=== PATIENT | female | born 1970 | race Caucasian/White ===

== ENCOUNTER 2017-08-14 22:53 | Emergency (ER) | payer SELFPAY ==
[2017-08-14 23:57] LABS: #Basophils 0.1 thou/uL (0.0-0.2); #Eosinphils 0.1 thou/uL (0.0-0.7); #Lymphocytes 1.9 thou/uL (1.20-3.40); #Monocytes 0.5 thou/uL (0.11-0.59); #Neutrophils 4.4 thou/uL (1.40-6.50); %Basophils 1.1 % (0.0-1.0); %Eosinophils 0.8 % (0.0-10.0); %Lymphocytes 27.3 % (21.0-51.0); Hematocrit 42.2 % (36.0-47.0); Mean Platelet Volume 8.6 fL (7.4-10.4); Red Blood Cell (RBC) Count 4.35 mill/uL (4.20-5.40); White Blood Cell (WBC) Count 6.9 thou/uL (4.8-10.8)
--- NOTE | 2017-08-15 | RAD ---
AP VIEW CHEST 08/14/17 HISTORY: Altered mental status. Intoxication. AP view chest is obtained. The lungs are well aerated. No evidence of active intrathoracic disease is seen. No evidence of effusions, pneumonia or pneumothorax seen. IMPRESSION: Unremarkable AP view chest. POS: [facility]
[2017-08-15 00:08] LABS: PTT 25.2 SEC (22.9-36.1); Prothrombin Time 12.5 SEC (12.0-14.7)
[2017-08-15 00:11] LABS: ALT (SGPT) 17 U/L (8-55); AST (SGOT) 17 U/L (5-34); Alkaline Phosphatase 74 U/L (40-150); Anion Gap 14 mmol/L (10-20); BUN (Urea Nitrogen) 11 mg/dL (7.0-18.7); Bilirubin, Total 0.2 mg/dL (0.2-1.2); Calc. Creatinine Clearance 0 mL/min (70-130); Calcium 8.7 mg/dL (7.8-10.44); Carbon Dioxide 20 mmol/L (22-29); Chloride 104 mmol/L (98-107); Estimated GFR-MDRD 71; Magnesium 2.2 mg/dL (1.6-2.6); Protein, Total 7.1 g/dL (6.0-8.3)
[2017-08-15 00:13] LABS: Acetaminophen Less than 6.0 mcg/mL (10.0-30.0); Lipase 33 U/L (8-78); Salicylate Less than 8.0 mg/dL (15.0-30.0)
[2017-08-15 00:16] LABS: Bilirubin Negative (Negative); Blood, Urine Trace (Negative); Glucose, Urine (Dipstick) Negative (Negative); Ketone, Urine Negative (Negative); Nitrite Negative (Negative); Protein, Urine (Dipstick) Negative (Neg-Trace); Urobilinogen 0.2 mg/dL (0.2-1.0)
[2017-08-15 00:26] LABS: Hyaline Casts/LPF NONE SEEN LPF (0-3 Hyaline); RBC/HPF 0-3 HPF (0-3); WBC/HPF None Seen HPF (0-3)
[2017-08-15 00:27] LABS: Bacteria/HPF None Seen HPF (None Seen); Squamous Epithelial 0-3 HPF (0-3)
[2017-08-15 00:40] LABS: Amphetamine Not Detected (NotDetected); Methadone Not Detected (NotDetected); Methamphetamine Not Detected (NotDetected)
[2017-08-15] MEDS ORDERED: Acetaminophen 500 MG TAB ONE (01:06)
[2017-08-15] MEDS ORDERED: PROVENTIL INHALER 6.7 G (200 INHALATIONS) INH PRN (07:15)
--- NOTE | 2017-08-15 08:37 | CT ---
PRELIMINARY REPORT/[facility]/EMERGENCY AFTER HOURS PROCEDURE: EXAM: CT Head Without Intravenous Contrast CLINICAL HISTORY: 46 years old, female; Signs and symptoms; Altered mental status/memory loss; Confusion or disorientat ion; Patient HX: AMS, ETOH TECHNIQUE: Axial computed tomography images of the head/brain without intravenous contrast. COMPARISON: No relevant prior studies available. FINDINGS: Mildly limited due to streak and motion artifact Brain: Mild volume loss No hemorrhage. No significant white matter disease. No edema. Ventricles: Unremarkable. No ventriculomegaly. Bones/joints: Unremarkable. No acute fracture. Soft tissues: Unremarkable. Sinuses: Unremarkable as visualized. No acute sinusitis. Mastoid air cells: Unremarkable as visualized. No mastoid effusion. IMPRESSION: No intracranial hemorrhage.Please see discussion above. Thank you for allowing us to participate in the care of your patient. Dictated and Authenticated by: Cedrick Crum MD 08/15/2017 12:43 AM Central Time ([place] & [place]) FINAL REPORT CT HEAD: Technique: Multiple axial tomograms were obtained through the head without contrast. FINDINGS: There is CSF density in the anterior aspect of the left middle cranial fossa measuring approximately 2 cm AP dimension. This appears to produce some slight mass effect on the temporal context. The findi ngs are most consistent with an arachnoid cyst. This was not described on the preliminary report. No acute intracranial abnormality. No hemorrhage, mass, or infarct seen. IMPRESSION: 1. No acute abnormality. 2. There is evidence of an arachnoid cyst in the left middle cranial fossa. This was not described on the preliminary report. Otherwise, I am in agreement with the preliminary report. QA Code T POS: [facility]
[2017-08-15] MEDS ORDERED: Acetaminophen 325 MG TAB ONE (12:34)
== END 2017-08-15 22:39 ==
LOC: ERS 22:53
DX: F10.10 Alcohol abuse, uncomplicated (principal); F14.10 Cocaine abuse, uncomplicated; R45.851 Suicidal ideations; J44.9 Chronic obstructive pulmonary disease, unspecified; F17.210 Nicotine dependence, cigarettes, uncomplicated
CPT/HCPCS: 36415; 70450; 71010; 80053; 80306; 80307; 81003; 81015; 82550; 83690; 83735; 84443; 85025; 85610; 85730; 93005

== ENCOUNTER 2019-01-04 17:37 | Emergency (ER) | payer SELFPAY ==
[2019-01-04] MEDS ORDERED: Dexamethasone 4 mg/ml Vial ONE (18:49)
--- NOTE | 2019-01-04 19:24 | RAD ---
2 views chest: 01/04/2019 COMPARISON: 07/08/2015 HISTORY: Shortness of breath, dyspnea, COPD, asthma FINDINGS: Lungs appear clear. Heart and mediastinal contours are within normal limits. IMPRESSION: No acute findings.
[2019-01-04 19:30] LABS: #Basophils 0.1 thou/uL (0.0-0.2); #Eosinphils 0.1 thou/uL (0.0-0.7); #Lymphocytes 1.6 thou/uL (1.20-3.40); #Monocytes 0.4 thou/uL (0.11-0.59); #Neutrophils 2.6 thou/uL (1.40-6.50); %Basophils 1.2 % (0.0-1.0); %Eosinophils 1.7 % (0.0-10.0); %Monocytes 8.2 % (0.0-10.0); Hemoglobin 13.1 g/dL (12.0-16.0); Mean Corpuscular HGB CONC 33.1 g/dL (32.0-36.0); Mean Corpuscular Hemoglobin 28.8 pg (27.0-31.0); Mean Platelet Volume 10.4 fL (7.4-10.4); Platelet Count 177 thou/uL (130-400); RBC Distribution Width 15.4 % (11.5-14.5); Red Blood Cell (RBC) Count 4.56 mill/uL (4.20-5.40); White Blood Cell (WBC) Count 4.7 thou/uL (4.8-10.8)
[2019-01-04 19:47] LABS: ALT (SGPT) 25 U/L (8-55); AST (SGOT) 21 U/L (5-34); Albumin 4.2 g/dL (3.5-5.0); Alkaline Phosphatase 94 U/L (40-150); Anion Gap 13 mmol/L (10-20); BUN (Urea Nitrogen) 15 mg/dL (7.0-18.7); Bilirubin, Total 0.3 mg/dL (0.2-1.2); Calc. Creatinine Clearance 0 mL/min (70-130); Carbon Dioxide 25 mmol/L (22-29); Chloride 106 mmol/L (98-107); Estimated GFR-MDRD 48; Globulin 2.9 g/dL (2.4-3.5); Glucose 98 mg/dL (70-105); Potassium 4.1 mmol/L (3.5-5.1); Protein, Total 7.1 g/dL (6.0-8.3); Sodium 140 mmol/L (136-145)
== END 2019-01-04 20:40 | disposition home or self-care (01) ==
LOC: ERS 17:37
DX: J44.9 Chronic obstructive pulmonary disease, unspecified (principal); M77.9 Enthesopathy, unspecified; F17.210 Nicotine dependence, cigarettes, uncomplicated; Z79.51 Long term (current) use of inhaled steroids
CPT/HCPCS: 71046; 80053; 83880; 85025; 93005; 94640; J1100; J7620

== ENCOUNTER 2019-04-19 01:36 | Emergency (ER) | payer SELFPAY ==
[2019-04-19] MEDS ORDERED: Acetaminophen 500 MG TAB ONE (02:04)
[2019-04-19] MEDS ORDERED: Metoclopramide HCl 10 MG/2 ML VIAL ONE (02:04)
[2019-04-19 02:13] LABS: #Lymphocytes 0.9 thou/uL (1.20-3.40); #Monocytes 0.3 thou/uL (0.11-0.59); #Neutrophils 3.1 thou/uL (1.40-6.50); %Basophils 0.1 % (0.0-1.0); %Eosinophils 0.9 % (0.0-10.0); %Lymphocytes 20.7 % (21.0-51.0); %Monocytes 6.9 % (0.0-10.0); %Neutrophils 71.5 % (42.0-75.0); Hemoglobin 13.5 g/dL (12.0-16.0); Mean Corpuscular HGB CONC 33.9 g/dL (32.0-36.0); Mean Corpuscular Hemoglobin 30.2 pg (27.0-31.0); Mean Platelet Volume 10.5 fL (7.4-10.4); Platelet Count 133 thou/uL (130-400); Red Blood Cell (RBC) Count 4.46 mill/uL (4.20-5.40); White Blood Cell (WBC) Count 4.4 thou/uL (4.8-10.8)
[2019-04-19 02:19] LABS: BHCG - Serum Negative (NEGATIVE); PTT 25.7 SEC (22.9-36.1); Pregs Control Background? CLEAR/WHITE (CLR/WHITE); Pregs Control Bar Appear? YES (CONTROL BAR); Prothrombin Time 12.7 SEC (12.0-14.7)
[2019-04-19 02:33] LABS: ALT (SGPT) 27 U/L (8-55); AST (SGOT) 23 U/L (5-34); Albumin 4.2 g/dL (3.5-5.0); Alkaline Phosphatase 99 U/L (40-150); Anion Gap 16 mmol/L (10-20); BUN (Urea Nitrogen) 11 mg/dL (7.0-18.7); Bilirubin, Total 0.3 mg/dL (0.2-1.2); CK (CPK) 90 U/L (29-168); Calc. Creatinine Clearance 0 mL/min (70-130); Calcium 9.7 mg/dL (7.8-10.44); Carbon Dioxide 21 mmol/L (22-29); Chloride 108 mmol/L (98-107); Estimated GFR-MDRD 65; Globulin 2.5 g/dL (2.4-3.5); Glucose 117 mg/dL (70-105); Potassium 4.3 mmol/L (3.5-5.1); Protein, Total 6.7 g/dL (6.0-8.3); Sodium 141 mmol/L (136-145)
--- NOTE | 2019-04-19 08:05 | CT ---
PRELIMINARY REPORT/[facility]/EMERGENCY AFTER HOURS PROCEDURE Addendum created by Serge Garcia MD on 04/19/2019 2:45 AM Central Time ([place] & [place]) THIS REPORT CONTAINS FINDINGS THAT MAY BE CRITICAL TO PATIENT CARE. The findings were verbally commun icated via telephone conference with ROSANNE CARBAJAL at 2:18 AM CDT on 04/19/2019. The findings were acknowledged and understood. Initial Report created on 04/19/2019 2:16 AM Central Time ([place] & [place]) EXAM: CT Head Without Contrast EXAM DATE/TIME: 04/19/2019 2:08 AM CLINICAL HISTORY: 48 years old, female; Weakness, extremity; Patient HX: Previous on pacs. . . Er 14. . . Headache with left arm numbness TECHNIQUE: Imaging protocol: Computed tomography images of the head without contrast. Other technique: STROKE PROTOCOL was implemented. COMPARISON: No relevant prior studies available. FINDINGS: Brain: CSF attenuation collections within the left intervertebral fossa, possibly arachnoid cyst. No mass, hemorrhage, or acute infarction. Ventricles: Normal. Bones/joints: Normal. Sinuses: Normal as visualized. Mastoid air cells: Normal as visualized. Soft tissues: Unremarkable. IMPRESSION: No acute intracranial abnormality. ASSESSMENT: ASPECTS ([place] Stroke Program Early CT Score) is 10. Thank you for allowing us to participate in the care of your patient. Dictated and Authenticated by: Serge Garcia MD 04/19/2019 2:16 AM Central Time ([place] & [place]) FINAL REPORT CT BRAIN WITHOUT CONTRAST: I agree with the preliminary report given by Dr. Serge Garcia of [facility]. CODE QA POS: [facility]
== END 2019-04-19 03:46 | disposition home or self-care (01) ==
LOC: ERS 01:36
DX: G43.809 Other migraine, not intractable, without status migrainosus (principal); J44.9 Chronic obstructive pulmonary disease, unspecified; F17.210 Nicotine dependence, cigarettes, uncomplicated; Z79.51 Long term (current) use of inhaled steroids
CPT/HCPCS: 36415; 36416; 70450; 80053; 82550; 84484; 84703; 85025; 85610; 85730; 93005; 96365; J2765

== ENCOUNTER 2019-04-29 08:47 | Emergency (ER) | payer SELFPAY ==
[2019-04-29] MEDS ORDERED: predniSONE 20 MG TAB ONE (09:40)
[2019-04-29 09:57] LABS: #Lymphocytes 1.8 thou/uL (1.20-3.40); #Monocytes 0.7 thou/uL (0.11-0.59); #Neutrophils 8.2 thou/uL (1.40-6.50); %Basophils 0.2 % (0.0-1.0); %Eosinophils 0.1 % (0.0-10.0); %Lymphocytes 17.1 % (21.0-51.0); %Monocytes 6.7 % (0.0-10.0); %Neutrophils 75.9 % (42.0-75.0); Hemoglobin 12.7 g/dL (12.0-16.0); Mean Corpuscular HGB CONC 33.6 g/dL (32.0-36.0); Mean Corpuscular Hemoglobin 30.2 pg (27.0-31.0); Mean Corpuscular Volume 89.8 fL (78.0-98.0); Mean Platelet Volume 10.5 fL (7.4-10.4); Platelet Count 151 thou/uL (130-400); RBC Distribution Width 15.8 % (11.5-14.5); White Blood Cell (WBC) Count 10.8 thou/uL (4.8-10.8)
[2019-04-29 10:19] LABS: ALT (SGPT) 34 U/L (8-55); AST (SGOT) 20 U/L (5-34); Albumin 4.1 g/dL (3.5-5.0); Alkaline Phosphatase 90 U/L (40-150); Anion Gap 11 mmol/L (10-20); BUN (Urea Nitrogen) 17 mg/dL (7.0-18.7); Bilirubin, Total 0.2 mg/dL (0.2-1.2); Calc. Creatinine Clearance 0 mL/min (70-130); Calcium 9.2 mg/dL (7.8-10.44); Carbon Dioxide 21 mmol/L (22-29); Chloride 110 mmol/L (98-107); Estimated GFR-MDRD 75; Globulin 2.4 g/dL (2.4-3.5); Glucose 92 mg/dL (70-105); Potassium 4.3 mmol/L (3.5-5.1); Protein, Total 6.5 g/dL (6.0-8.3); Sodium 138 mmol/L (136-145)
--- NOTE | 2019-04-29 10:43 | RAD ---
EXAM: Chest one view: HISTORY: Dyspnea COMPARISON: 04/27/2019 FINDINGS: Heart size: Within normal limits. Lungs: Clear of acute process. No evidence for pneumonia, pleural effusion, acute edema, or pneumothorax, or other significant acute process. IMPRESSION: No significant acute intrathoracic disease. Stable chest.
== END 2019-04-29 10:44 | disposition home or self-care (01) ==
LOC: ERS 08:47
DX: J44.1 Chronic obstructive pulmonary disease with (acute) exacerbation (principal); F31.9 Bipolar disorder, unspecified; F43.10 Post-traumatic stress disorder, unspecified; F17.210 Nicotine dependence, cigarettes, uncomplicated; Z79.51 Long term (current) use of inhaled steroids
CPT/HCPCS: 36415; 71045; 80053; 84484; 85025; 93005; 94640; J7512; J7620

== ENCOUNTER 2019-06-22 22:20 | Emergency (ER) | payer SELFPAY ==
[2019-06-22 22:41] LABS: Bilirubin Negative (Negative); Blood, Urine Negative (Negative); Clarity Clear (Clear); Glucose, Urine (Dipstick) Normal (Negative); Leukocyte Negative Leu/uL (Negative); Nitrite Negative (Negative); Protein, Urine (Dipstick) Negative (Neg-Trace); Urobilinogen Normal mg/dL (Less than 2)
[2019-06-22 22:50] LABS: Amphetamine Not Detected (NotDetected); Barbiturates Screen Not Detected (NotDetected); Benzodiazepine Screen Not Detected (NotDetected); Cocaine Metabolite Screen Not Detected (NotDetected); Medtox Control Line Valid? VALID (VALID); Medtox Reader # READER 1; Methadone Not Detected (NotDetected); Methamphetamine Not Detected (NotDetected); Opiate Screen Not Detected (NotDetected); Oxycodone Screen Not Detected (NotDetected); Phencyclidine (PCP) Not Detected (NotDetected); THC/Cannabinoid Screen Not Detected (NotDetected); Tricyclic Screen Not Detected (NotDetected)
[2019-06-22 22:51] LABS: #Lymphocytes 1.9 thou/uL (1.20-3.40); #Monocytes 0.5 thou/uL (0.11-0.59); #Neutrophils 3.9 thou/uL (1.40-6.50); %Basophils 0.6 % (0.0-1.0); %Eosinophils 0.6 % (0.0-10.0); %Lymphocytes 29.8 % (21.0-51.0); %Monocytes 7.2 % (0.0-10.0); %Neutrophils 61.9 % (42.0-75.0); Hemoglobin 13.9 g/dL (12.0-16.0); Mean Corpuscular HGB CONC 34.3 g/dL (32.0-36.0); Mean Corpuscular Hemoglobin 30.9 pg (27.0-31.0); Mean Corpuscular Volume 90.1 fL (78.0-98.0); Mean Platelet Volume 9.9 fL (7.4-10.4); Platelet Count 175 thou/uL (130-400); RBC Distribution Width 14.7 % (11.5-14.5); Red Blood Cell (RBC) Count 4.49 mill/uL (4.20-5.40); White Blood Cell (WBC) Count 6.3 thou/uL (4.8-10.8)
[2019-06-22 23:16] LABS: ALT (SGPT) 41 U/L (8-55); AST (SGOT) 32 U/L (5-34); Albumin 4.5 g/dL (3.5-5.0); Alkaline Phosphatase 83 U/L (40-110); Anion Gap 15 mmol/L (10-20); BUN (Urea Nitrogen) 8 mg/dL (7.0-18.7); Bilirubin, Total 0.4 mg/dL (0.2-1.2); CK (CPK) 159 U/L (29-168); Calc. Creatinine Clearance 0 mL/min (70-130); Calcium 9.5 mg/dL (7.8-10.44); Carbon Dioxide 19 mmol/L (22-29); Chloride 103 mmol/L (98-107); Estimated GFR-MDRD 69; Globulin 2.9 g/dL (2.4-3.5); Glucose 85 mg/dL (70-105); Protein, Total 7.4 g/dL (6.0-8.3); Sodium 133 mmol/L (136-145)
[2019-06-22 23:17] LABS: Acetaminophen Less than 6.0 mcg/mL (10.0-30.0); Alcohol 89 mg/dL (Less than 10); Salicylate Less than 8.0 mg/dL (15.0-30.0)
[2019-06-24] MEDS ORDERED: Mometasone/Formoterol 120 PUFF INHALER INH SCH (06:30)
[2019-06-24] MEDS ORDERED: Montelukast Sodium 10 mg Tablet PO SCH (09:00)
[2019-06-24] MEDS ORDERED: Naproxen 500 MG TAB PO SCH (09:00)
== END 2019-06-24 19:10 | disposition home or self-care (01) ==
LOC: ERS 22:20
DX: F32.9 Major depressive disorder, single episode, unspecified (principal); R45.851 Suicidal ideations; J44.9 Chronic obstructive pulmonary disease, unspecified; F17.210 Nicotine dependence, cigarettes, uncomplicated; F43.10 Post-traumatic stress disorder, unspecified; Z79.899 Other long term (current) drug therapy; Z77.22 Contact with and (suspected) exposure to environmental tobacco smoke (acute) (chronic)
CPT/HCPCS: 36415; 80053; 80306; 80307; 81003; 82550; 84443; 85025; 99406

== ENCOUNTER 2019-10-17 11:14 | Inpatient (IN) | payer SELFPAY ==
--- NOTE | 2019-10-17 11:37 | RAD ---
XR Chest Pa Lat STANDARD HISTORY: Cough, shortness of breath COMPARISON: 04/29/2019 and 01/04/2019 FINDINGS: The heart size is normal. The lungs are well expanded without focal areas of consolidation, pneumothorax or pleural effusions. There are mild perihilar infiltrates.
[2019-10-17 11:53] LABS: #Eosinphils 0.1 thou/uL (0.0-0.7); #Lymphocytes 0.8 thou/uL (1.20-3.40); #Monocytes 0.5 thou/uL (0.11-0.59); #Neutrophils 4.9 thou/uL (1.40-6.50); %Basophils 0.3 % (0.0-1.0); %Eosinophils 1.4 % (0.0-10.0); %Lymphocytes 12.6 % (21.0-51.0); %Monocytes 8.1 % (0.0-10.0); %Neutrophils 77.6 % (42.0-75.0); Mean Corpuscular HGB CONC 33.5 g/dL (32.0-36.0); Mean Corpuscular Volume 95.5 fL (78.0-98.0); Mean Platelet Volume 9.3 fL (7.4-10.4); Platelet Count 154 thou/uL (130-400); RBC Distribution Width 16.5 % (11.5-14.5); Red Blood Cell (RBC) Count 4.39 mill/uL (4.20-5.40); White Blood Cell (WBC) Count 6.3 thou/uL (4.8-10.8)
[2019-10-17 12:18] LABS: ALT (SGPT) 26 U/L (8-55); AST (SGOT) 24 U/L (5-34); Albumin 3.9 g/dL (3.5-5.0); Alkaline Phosphatase 89 U/L (40-110); Anion Gap 14 mmol/L (10-20); BUN (Urea Nitrogen) 8 mg/dL (7.0-18.7); Bilirubin, Total 0.3 mg/dL (0.2-1.2); Calc. Creatinine Clearance 0 mL/min (70-130); Calcium 9.1 mg/dL (7.8-10.44); Carbon Dioxide 21 mmol/L (22-29); Chloride 105 mmol/L (98-107); Estimated GFR-MDRD 67; Glucose 76 mg/dL (70-105); Potassium 5.1 mmol/L (3.5-5.1); Protein, Total 6.9 g/dL (6.0-8.3); Sodium 135 mmol/L (136-145)
[2019-10-17] MEDS ORDERED: methylPREDNISolone Sod Succ/PF 125 MG/2 ML VIAL ONE (17:15)
[2019-10-17] MEDS ORDERED: Levofloxacin 500 mg/D5W 100 ml Premix Bag ONE (17:15)
[2019-10-17] MEDS ORDERED: Ibuprofen 800 MG TAB ONE (17:24)
[2019-10-17] MEDS ORDERED: Senokot S 8.6-50 MG TAB PO PRN (19:41)
[2019-10-17 20:18] LABS: Troponin I Less than 0.010 ng/mL (< 0.028)
[2019-10-17] MEDS: Nicotine 14 MG PATCH TD SCH (20:43)
[2019-10-17 20:53] VITALS: BMI 40.1
[2019-10-17] MEDS: Famotidine/PF 20 mg/2ml Vial SLOW IVP SCH (21:30)
[2019-10-18 00:25] LABS: Troponin I Less than 0.010 ng/mL (< 0.028)
--- NOTE | 2019-10-18 01:22 | HP ---
CHIEF COMPLAINT: Shortness of breath. HISTORY OF PRESENT ILLNESS: The patient is a very nice 48-year-old female, who presents to the hospital with complaints of shortness of breath. The patient stated that yesterday she started having cough followed with some lower chest upper abdominal pain radiating to her back. She described the pain as a sharp pain. The patient states that she has been using her neb treatments at home without any relief. So she came into the hospital for further evaluation. She denies any fevers or chills. She was a little nauseated. She continues to smoke a pack and a half a day. PAST MEDICAL HISTORY: She has a history of asthma that she was diagnosed at the age of 15. She has a history of hypertension. It says she has a history of COPD, but she has never been officially tested for this. PAST SURGICAL HISTORY: She has had fracture of the right ankle. She has had right eye surgery. She has had tubal ligation. 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 SOCIAL HISTORY: She currently smokes tobacco a pack a day. She denies any alcohol use or recreational drug use. She lives with her . CODE STATUS: She is a full code. ALLERGIES: TO TRAMADOL. MEDICATIONS: She is on: 1. Symbicort 80 mcg/4.5 mcg two puffs once a day. 2. She is on albuterol as needed. 3. She is on hydroxyzine t.i.d. 4. She is on sertraline 50 mg daily. 5. She is on Divalproex one tab twice a day. REVIEW OF SYSTEMS: All negative except for the ones mentioned above in the HPI. PHYSICAL EXAMINATION: VITAL SIGNS: 95% on room air, 98.7 temperature, respirations of 18, pulse of 99, and blood pressure 142/87. GENERAL: She is awake, alert, and oriented x3. Does not appear in any distress. She does at times get short of breath after talking for a while. CV: S1 and S2 present. No murmurs, rubs, or gallops. LUNGS: She has mild expiratory wheezing to her left lower lung compared to her right. ABDOMEN: Soft. Mild pain upon palpation to the epigastric area. Otherwise, benign abdomen. EXTREMITIES: She has some trace lower extremity pitting edema. Pedal pulses are present x2. NEUROVASCULAR: There are no focal deficits noted. SKIN: No cuts, lesions, or bruises noted. LABORATORY DATA: Laboratory results are as of the following. WBC of 6.3, hemoglobin of 14.0, hematocrit of 41.9, platelets of 154. Chemistry; sodium of 135, potassium of 5.1, BUN of 8, creatinine of 0.91. She did have a flu swab, which was negative. She also had a chest x-ray, which stated possible perihilar infiltrates. ASSESSMENT AND PLAN: The patient is a very pleasant 48-year-old female, who presents to the hospital with complaints of shortness of breath. 1. Shortness of breath, possibly asthma exacerbation versus asthma and chronic obstructive pulmonary disease exacerbation. As I mentioned, she has not really officially been tested for chronic obstructive pulmonary disease; however, given her history of smoking, most likely she does have. She does not have a continuous wave operator as an outpatient. We will start her on some Solu-Medrol, DuoNebs, and also start her on antibiotics. I will check a procalcitonin level. I will also get a BNP and also an echocardiogram. She has significant risk factors for possible other reasons for her shortness of breath. She did not have significant wheezing on exam; however, she I was told and the patient confirms that she was very short of breath upon arrival. 2. Possible asthma exacerbation. Again as I mentioned earlier, we will start her on some broad-spectrum antibiotics, neb treatments and also DuoNeb. 3. Deep venous thrombosis prophylaxis. We will put the patient on SCDs and subcu Lovenox. Also, I will go ahead and get an echocardiogram on her given the fact that she does not have any heart disease or any history of heart disease; however, she was significantly short of breath, and we will also get a BNP for her. Job ID: [id number]
[2019-10-18 05:28] LABS: #Lymphocytes 0.4 thou/uL (1.20-3.40); #Monocytes 0.1 thou/uL (0.11-0.59); #Neutrophils 3.7 thou/uL (1.40-6.50); %Eosinophils 0.3 % (0.0-10.0); %Lymphocytes 9.7 % (21.0-51.0); %Monocytes 3.4 % (0.0-10.0); %Neutrophils 86.7 % (42.0-75.0); Hemoglobin 12.2 g/dL (12.0-16.0); Mean Corpuscular HGB CONC 32.9 g/dL (32.0-36.0); Mean Corpuscular Hemoglobin 30.9 pg (27.0-31.0); Mean Corpuscular Volume 93.9 fL (78.0-98.0); Mean Platelet Volume 9.7 fL (7.4-10.4); Platelet Count 145 thou/uL (130-400); RBC Distribution Width 16.4 % (11.5-14.5); Red Blood Cell (RBC) Count 3.95 mill/uL (4.20-5.40); White Blood Cell (WBC) Count 4.2 thou/uL (4.8-10.8)
[2019-10-18 05:47] LABS: Anion Gap 16 mmol/L (10-20); BUN (Urea Nitrogen) 11 mg/dL (7.0-18.7); Calc. Creatinine Clearance 128 mL/min (70-130); Calcium 8.6 mg/dL (7.8-10.44); Carbon Dioxide 20 mmol/L (22-29); Chloride 107 mmol/L (98-107); Estimated GFR-MDRD 68; Glucose 158 mg/dL (70-105); Potassium 4.7 mmol/L (3.5-5.1); Sodium 138 mmol/L (136-145)
[2019-10-18 05:57] LABS: Troponin I Less than 0.010 ng/mL (< 0.028)
[2019-10-18] MEDS: Enoxaparin Sodium 40 MG/0.4 ML SYRINGE SC SCH (09:49)
[2019-10-18] MEDS: Famotidine/PF 20 mg/2ml Vial SLOW IVP SCH ×2 (09:49→20:46)
[2019-10-18] MEDS ORDERED: Furosemide 40 MG/4 ML VIAL SLOW IVP SCH (14:30)
--- NOTE | 2019-10-18 14:31 | PDOC.HOSPP ---
- Subjective Encounter Date: 10/18/19 Encounter Time: 11:55 Subjective: pt up in bed feels a bit better compared to yesterday. - Objective Vital Signs & Weight: Vital Signs (12 hours) Temp Pulse Resp BP BP Pulse Ox 10/18/19 11:42 97.9 F 102 H 18 118/73 95 10/18/19 10:32 92 16 92 L 10/18/19 08:00 96 10/18/19 07:54 98.1 F 114 H 20 139/80 96 10/18/19 07:03 95 16 90 L 10/18/19 05:26 98.8 F 87 20 121/76 93 L Weight Weight 227 lb I&O: 10/17/19 10/18/19 10/19/19 06:59 06:59 06:59 Intake Total 800 Balance 800 Result Diagrams: 10/18/19 05:05 10/18/19 05:05 Hospitalist ROS - Review of Systems Respiratory: reports: shortness of breath Cardiovascular: denies: chest pain, palpitations, orthopnea, paroxysmal noc. dyspnea, edema, light headedness, other Gastrointestinal: denies: nausea, vomiting, abdominal pain, diarrhea, constipation, melena, hematochezia, other Genitourinary: denies: dysuria, frequency, incontinence, hematuria, retention, other - Medication Medications: Active Medications Generic Name Dose Route Start Last Admin Trade Name Freq PRN Reason Stop Dose Admin Albuterol/Ipratropium 3 ml 10/17/19 22:30 10/18/19 13:56 Duoneb NEB Not Given T4OK-OR SOLANGE Enoxaparin Sodium 40 mg 10/18/19 09:00 10/18/19 09:49 Lovenox SC 40 mg 0900 SOLANGE Administration Famotidine 20 mg 10/17/19 21:00 10/18/19 09:49 Pepcid SLOW IVP 20 mg Q12HR SOLANGE Administration Nicotine 14 mg 10/17/19 20:00 10/17/19 20:43 Nicoderm Patch TD 14 mg Q24HR SOLANGE Administration Sodium Chloride 10 ml 10/18/19 09:00 10/18/19 09:50 Flush - Normal Saline IVF 10 ml Q12HR SOLANGE Administration - Exam Neck: negative: supple, symmetric, no JVD, no thyromegaly, no lymphadenopathy, no carotid bruit, JVD Heart: negative: RRR, no murmur, no gallops, no rubs, normal peripheral pulses, irregular, diminshed peripheral pulses, murmur present, II/IV, III/IV Respiratory: wheezes Gastrointestinal: negative: soft, non-tender, non-distended, normal bowel sounds , no palpable masses, no hepatomegaly, no splenomegaly, no bruit, no guarding, no rigidity, tender to palpation, distended, diminished bowl sounds, voluntary guarding Extremities: negative: no cyanosis, no clubbing, no edema, 1+ LE edema, 2+ LE edema, clubbing Hosp A/P (1) SOB (shortness of breath) Code(s): R06.02 - SHORTNESS OF BREATH Status: Acute (2) Obesity Code(s): E66.9 - OBESITY, UNSPECIFIED Status: Acute (3) Asthma exacerbation Code(s): J45.901 - UNSPECIFIED ASTHMA WITH (ACUTE) EXACERBATION Status: Acute - Plan pt states she feels much better, echo pending. bnp normal. will give one dose of iv lasix for now. possible discharge in am if she is able to be weaned off oxygen.
[2019-10-18] MEDS: Acetaminophen 325 MG TAB PO PRN (15:54)
[2019-10-18] MEDS: hydrOXYzine 10 MG TAB PO SCH ×2 (15:54→20:37)
[2019-10-18] MEDS: Divalproex Sodium DR 500 MG TAB PO SCH (20:37)
[2019-10-18] MEDS: hydrOXYzine 25 MG TAB PO SCH (20:37)
[2019-10-18] MEDS: Nicotine 14 MG PATCH TD SCH (20:47)
[2019-10-19] MEDS: Famotidine/PF 20 mg/2ml Vial SLOW IVP SCH (08:21)
[2019-10-19] MEDS: Enoxaparin Sodium 40 MG/0.4 ML SYRINGE SC SCH (08:21)
[2019-10-19] MEDS: Divalproex Sodium DR 500 MG TAB PO SCH ×2 (08:22→20:46)
[2019-10-19] MEDS: hydrOXYzine 10 MG TAB PO SCH ×3 (08:22→20:54)
[2019-10-19] MEDS: methylPREDNISolone Sod Succ 40 MG VIAL IVP SCH (08:22)
[2019-10-19] MEDS ORDERED: Furosemide 40 MG/4 ML VIAL SLOW IVP SCH (09:15)
--- NOTE | 2019-10-19 14:01 | PDOC.HOSPP ---
- Subjective Encounter Date: 10/19/19 Encounter Time: 10:55 Subjective: pt up in bed feels better today - Objective Vital Signs & Weight: Vital Signs (12 hours) Temp Pulse Resp BP Pulse Ox 10/19/19 13:53 89 16 94 L 10/19/19 10:39 85 16 95 10/19/19 08:00 95 10/19/19 07:28 98.2 F 82 18 101/52 L 95 10/19/19 07:07 88 16 94 L 10/19/19 02:39 84 16 97 Weight Weight 227 lb I&O: 10/18/19 10/19/19 10/20/19 06:59 06:59 06:59 Intake Total 1280 Balance 1280 Result Diagrams: 10/18/19 05:05 10/18/19 05:05 Hospitalist ROS - Review of Systems Cardiovascular: denies: chest pain, palpitations, orthopnea, paroxysmal noc. dyspnea, edema, light headedness, other Gastrointestinal: denies: nausea, vomiting, abdominal pain, diarrhea, constipation, melena, hematochezia, other Genitourinary: denies: dysuria, frequency, incontinence, hematuria, retention, other - Medication Medications: Active Medications Generic Name Dose Route Start Last Admin Trade Name Freq PRN Reason Stop Dose Admin Acetaminophen 650 mg 10/17/19 19:41 10/18/19 15:54 Tylenol PO 650 mg Q4H PRN Administration Headache/Fever/Mild Pain (1-3) Albuterol/Ipratropium 3 ml 10/17/19 22:30 10/19/19 13:53 Duoneb NEB 3 ml [id number] SOLANGE Administration Divalproex Sodium 500 mg 10/18/19 21:00 10/19/19 08:22 Depakote PO 500 mg BID SOLANGE Administration Enoxaparin Sodium 40 mg 10/18/19 09:00 10/19/19 08:21 Lovenox SC 40 mg 0900 SOLANGE Administration Famotidine 20 mg 10/17/19 21:00 10/19/19 08:21 Pepcid SLOW IVP 20 mg Q12HR SOLANGE Administration Hydroxyzine HCl 10 mg 10/18/19 15:00 10/19/19 08:22 Atarax PO 10 mg TID SOLANGE Administration Hydroxyzine HCl 100 mg 10/18/19 21:00 10/18/19 20:37 Atarax PO 100 mg HS SOLANGE Administration Levofloxacin 500 mg/ Device 100 mls @ 100 mls/hr 10/18/19 18:00 10/18/19 18: 13 IVPB 100 mls Q24HR SOLANGE Administration Methylprednisolone Sodium Succinate 40 mg 10/19/19 09:00 10/19/19 08:22 Solu-Medrol IVP 40 mg DAILY [facility] Administration Nicotine 14 mg 10/17/19 20:00 10/18/19 20:47 Nicoderm Patch TD Not Given Q24HR SOLANGE Sertraline HCl 50 mg 10/19/19 09:00 10/19/19 08:21 Zoloft PO 50 mg DAILY SOLANGE Administration Sodium Chloride 10 ml 10/18/19 09:00 10/19/19 08:23 Flush - Normal Saline IVF 10 ml Q12HR SOLANGE Administration - Exam ENT: negative: normocephalic atraumatic, no oropharyngeal lesions, moist mucosa , dry oral mucosa Neck: negative: supple, symmetric, no JVD, no thyromegaly, no lymphadenopathy, no carotid bruit, JVD Heart: negative: RRR, no murmur, no gallops, no rubs, normal peripheral pulses, irregular, diminshed peripheral pulses, murmur present, II/IV, III/IV Respiratory: wheezes Hosp A/P (1) SOB (shortness of breath) Code(s): R06.02 - SHORTNESS OF BREATH Status: Acute (2) Obesity Code(s): E66.9 - OBESITY, UNSPECIFIED Status: Acute (3) Asthma exacerbation Code(s): J45.901 - UNSPECIFIED ASTHMA WITH (ACUTE) EXACERBATION Status: Acute - Plan pt states she feels much better, echo pending. bnp normal. will give one dose of iv lasix for now. possible discharge in am if she is able to be weaned off oxygen. 10/19 will give her one more dose of lasix and possible discharge in am. she is doing well. she has an appointment with her primary carola.
[2019-10-19] MEDS ORDERED: Furosemide 20 MG/2 ML VIAL SLOW IVP SCH (14:15)
[2019-10-19] MEDS: Acetaminophen 325 MG TAB PO PRN (20:46)
[2019-10-19] MEDS: hydrOXYzine 25 MG TAB PO SCH (20:47)
[2019-10-19] MEDS: Famotidine 20 MG TAB PO SCH (20:47)
[2019-10-19] MEDS: Nicotine 14 MG PATCH TD SCH (20:59)
[2019-10-20 07:47] VITALS: BP 137/79; TEMP 97.7
[2019-10-20] MEDS: hydrOXYzine 10 MG TAB PO SCH (08:49)
[2019-10-20] MEDS: Famotidine 20 MG TAB PO SCH (08:49)
[2019-10-20] MEDS: Divalproex Sodium DR 500 MG TAB PO SCH (08:50)
[2019-10-20] MEDS: Enoxaparin Sodium 40 MG/0.4 ML SYRINGE SC SCH (08:52)
[2019-10-20] MEDS: methylPREDNISolone Sod Succ 40 MG VIAL IVP SCH (08:53)
[2019-10-20] MEDS ORDERED: predniSONE 20 MG TAB PO SCH (09:00)
--- NOTE | 2019-10-21 22:27 | PQF ---
WangAmy LOUISA CONSTANTINO [id number] CLINICAL DOCUMENTATION CLARIFICATION FORM: POST DISCHARGE Addendum to original discharge summary date: ____ Late entry note date: __ DATE:10/21/2019 ATTN:LOUISA CONSTANTINO Please exercise your independent, professional judgment in responding to the clarification form. Clinical indicators are provided on the bottom of this form for your review Please check appropriate box(s): kindly clarify the shortness of breath etiology [ ] Shortness of breath due to Asthma exacerbation [ ] Shortness of breath due to COPD exacerbation [ ] Other diagnosis [ ] Unable to determine In addition, please specify: Present on Admission (POA): [ ] Yes [ ] No [ ] Unable to determine For continuity of documentation, please document condition throughout progress notes and discharge summary. Thank You. CLINICAL INDICATORS - SIGNS / SYMPTOMS / LABS Shortness of breath possibly asthma exacerbation versus asthma and COPD exacerbation-Documented in H&P on 10/17 by Louisa Constantino MD Pt states she feels much better , ECHO pending . BNP normal -Documented in PN on 10/19 by Louisa Constantino MD Asthma exacerbation-Documented in PN on 10/19 by Louisa Constantino MD RISK FACTORS Shortness of breath possibly asthma exacerbation versus asthma and COPD exacerbation-Documented in H&P on 10/17 by Louisa Constantino MD She currently smokes tobacco a pack a day-Documented in H&P on 10/17 by Louisa Constantino MD TREATMENTS: We will start her on some solu-medrol, Duonebs, and also start her antibiotics. I will check a procalcitonin level. 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 All Rights Reserved [email or web address]
--- NOTE | 2019-10-23 16:49 | EKG ---
Test Reason : CHEST PAIN Blood Pressure : / mmHG Vent. Rate : 106 BPM Atrial Rate : 106 BPM P-R Int : 140 ms QRS Dur : 076 ms QT Int : 314 ms P-R-T Axes : 000 155 152 degrees QTc Int : 417 ms Suspect arm lead reversal, interpretation assumes no reversal Sinus tachycardia Confirmed by RHONDA CHAIDEZ DO ([id number]), cancer program consultant MALISSA RUSH ([id number]) on 10/23/2019 4:48:23 PM Referred By: Confirmed By:RHONDA CHAIDEZ DO
== END 2019-10-20 11:47 | disposition home or self-care (01) | DRG 202 ==
LOC: ERS 11:14 → T4-A 17:46 → OBSVTOIN 17:46
PROVIDERS: ADMIT Internal Medicine; ATTEND Internal Medicine
DX: J45.901 Unspecified asthma with (acute) exacerbation (principal); Z68.41 Body mass index [BMI] 40.0-44.9, adult; J44.1 Chronic obstructive pulmonary disease with (acute) exacerbation; E66.9 Obesity, unspecified; I10 Essential (primary) hypertension; Z98.51 Tubal ligation status; F17.200 Nicotine dependence, unspecified, uncomplicated; Z90.5 Acquired absence of kidney; R40.2362 Coma scale, best motor response, obeys commands, at arrival to emergency department; R40.2142 Coma scale, eyes open, spontaneous, at arrival to emergency department; R40.2252 Coma scale, best verbal response, oriented, at arrival to emergency department
CPT/HCPCS: 36415; 71046; 80048; 80053; 83690; 83880; 84145; 84484; 85025; 85379; 87804; 93005; 93306; 94640; 96361; 96365; 96375; J1650; J1940; J1956; J2920; J2930; J7512; J7620; S0028

== ENCOUNTER 2020-09-19 10:04 | Emergency (ER) | payer SELFPAY ==
[2020-09-19] MEDS ORDERED: Ketorolac Tromethamine 30 MG/ML VIAL ONE (11:03)
== END 2020-09-19 11:27 | disposition home or self-care (01) ==
LOC: ERS 10:04
DX: K05.10 Chronic gingivitis, plaque induced (principal); J44.9 Chronic obstructive pulmonary disease, unspecified; F17.210 Nicotine dependence, cigarettes, uncomplicated; M19.90 Unspecified osteoarthritis, unspecified site; Z79.51 Long term (current) use of inhaled steroids; Z79.899 Other long term (current) drug therapy
CPT/HCPCS: 96372; 99282; J1885

== ENCOUNTER 2020-10-30 08:40 | Emergency (ER) | payer OTHER, SELFPAY ==
--- NOTE | 2020-10-30 09:05 | RAD ---
EXAM: XR Hand Rt 3 View STANDARD PROVIDED CLINICAL HISTORY: Dogbite FINDINGS: There is no evidence for fracture or other acute osseous abnormality. Alignment appears anatomic. Milagro nt spaces appear preserved. Soft tissue gas is seen at the ulnar aspect of the hand. There is no evidence for radiopaque foreign body. IMPRESSION: No evidence for an acute osseous abnormality. If there is persistent clinical concern, conservative m anagement and follow-up imaging advised.
[2020-10-30] MEDS ORDERED: Rabies Vaccine Human 2.5 UNITS VIAL IM ONE (09:15)
[2020-10-30] MEDS ORDERED: Boostrix 0.5 ML (Tdap) VIAL ONE (09:25)
[2020-10-30] MEDS ORDERED: Ondansetron ODT 4 MG TAB ONE (09:25)
[2020-10-30] MEDS ORDERED: Amoxicillin/Potassium Clav 875 MG TAB ONE (09:25)
[2020-10-30] MEDS ORDERED: HYDROcodone/Acetaminophen 10/325 mg Tablet ONE (09:28)
== END 2020-10-30 11:03 | disposition home or self-care (01) ==
LOC: ERS 08:40
DX: S61.431A Puncture wound without foreign body of right hand, initial encounter (principal); J44.9 Chronic obstructive pulmonary disease, unspecified; M19.90 Unspecified osteoarthritis, unspecified site; F17.210 Nicotine dependence, cigarettes, uncomplicated; W54.0XXA Bitten by dog, initial encounter; Z23 Encounter for immunization; Y92.017 Garden or yard in single-family (private) house as the place of occurrence of the external cause; Z79.51 Long term (current) use of inhaled steroids; Z79.899 Other long term (current) drug therapy
CPT/HCPCS: 90376; 90471; 90472; 90675; 90715; 96372; Q0162

== ENCOUNTER → 2020-11-02 | Day surgery (SDC) | payer SELFPAY ==
[~2020-11-02] MED LIST: Rabies Vaccine Human 2.5 UNITS VIAL IM ONE
== END ==
LOC: ER/OP 10:52
DX: Z23 Encounter for immunization (principal); F17.210 Nicotine dependence, cigarettes, uncomplicated; J44.9 Chronic obstructive pulmonary disease, unspecified; F31.9 Bipolar disorder, unspecified; F43.10 Post-traumatic stress disorder, unspecified; Z91.5 Personal history of self-harm
CPT/HCPCS: 90471; 90675

== ENCOUNTER 2021-02-25 15:04 | Emergency (ER) | payer SELFPAY ==
[2021-02-25] MEDS ORDERED: Ondansetron ODT 4 MG TAB ONE (15:30)
[2021-02-25] MEDS ORDERED: Ketorolac Tromethamine 30 MG/ML VIAL ONE (15:30)
== END 2021-02-25 15:55 | disposition home or self-care (01) ==
LOC: ERS 15:04
DX: R11.2 Nausea with vomiting, unspecified (principal); T50.B95A Adverse effect of other viral vaccines, initial encounter; J44.9 Chronic obstructive pulmonary disease, unspecified; F17.210 Nicotine dependence, cigarettes, uncomplicated
CPT/HCPCS: J1885; Q0162

== ENCOUNTER 2021-03-06 12:35 | Emergency (ER) | payer SELFPAY ==
[2021-03-06 13:04] LABS: #Eosinphils 0.1 thou/uL (0.0-0.7); #Lymphocytes 1.3 thou/uL (1.20-3.40); #Monocytes 0.4 thou/uL (0.11-0.59); #Neutrophils 2.6 thou/uL (1.40-6.50); %Basophils 0.6 % (0.0-1.0); %Eosinophils 1.1 % (0.0-10.0); %Lymphocytes 29.3 % (21.0-51.0); %Monocytes 9.4 % (0.0-10.0); %Neutrophils 59.5 % (42.0-75.0); Hemoglobin 13.6 g/dL (12.0-16.0); Mean Corpuscular HGB CONC 33.6 g/dL (32.0-36.0); Mean Corpuscular Hemoglobin 32.5 pg (27.0-31.0); Mean Corpuscular Volume 96.7 fL (78.0-98.0); Mean Platelet Volume 9.9 fL (7.4-10.4); Platelet Count 148 thou/uL (130-400); RBC Distribution Width 13.9 % (11.5-14.5); Red Blood Cell (RBC) Count 4.19 mill/uL (4.20-5.40); White Blood Cell (WBC) Count 4.4 thou/uL (4.8-10.8)
[2021-03-06 13:27] LABS: ALT (SGPT) 36 U/L (8-55); AST (SGOT) 42 U/L (5-34); Albumin 3.5 g/dL (3.5-5.0); Alkaline Phosphatase 73 U/L (40-110); Anion Gap 14 mmol/L (10-20); BUN (Urea Nitrogen) 9 mg/dL (7.0-18.7); Bilirubin, Total 0.3 mg/dL (0.2-1.2); Calc. Creatinine Clearance 0 mL/min (70-130); Calcium 8.9 mg/dL (7.8-10.44); Carbon Dioxide 20 mmol/L (22-29); Chloride 109 mmol/L (98-107); Globulin 2.2 g/dL (2.4-3.5); Glucose 93 mg/dL (70-105); Potassium 4.5 mmol/L (3.5-5.1); Protein, Total 5.7 g/dL (6.0-8.3); Sodium 138 mmol/L (136-145)
[2021-03-06] MEDS ORDERED: Aspirin 325 MG TAB ONE (14:28)
== END 2021-03-06 14:35 | disposition home or self-care (01) ==
LOC: ERS 12:35
DX: R07.2 Precordial pain (principal); M19.90 Unspecified osteoarthritis, unspecified site; J44.9 Chronic obstructive pulmonary disease, unspecified; F17.210 Nicotine dependence, cigarettes, uncomplicated
CPT/HCPCS: 36415; 71045; 80053; 84484; 85025; 85379; 93005

== ENCOUNTER 2021-03-10 16:27 | Emergency (ER) | payer SELFPAY ==
[2021-03-10 17:57] LABS: #Eosinphils 0.1 thou/uL (0.0-0.7); #Lymphocytes 1.9 thou/uL (1.20-3.40); #Monocytes 0.6 thou/uL (0.11-0.59); #Neutrophils 3.8 thou/uL (1.40-6.50); %Basophils 0.5 % (0.0-1.0); %Eosinophils 1.1 % (0.0-10.0); %Lymphocytes 29.6 % (21.0-51.0); %Monocytes 8.9 % (0.0-10.0); %Neutrophils 59.9 % (42.0-75.0); Hemoglobin 15.7 g/dL (12.0-16.0); Mean Corpuscular HGB CONC 34.6 g/dL (32.0-36.0); Mean Corpuscular Hemoglobin 33.3 pg (27.0-31.0); Mean Corpuscular Volume 96.2 fL (78.0-98.0); Mean Platelet Volume 10.2 fL (7.4-10.4); Platelet Count 168 thou/uL (130-400); RBC Distribution Width 13.8 % (11.5-14.5); Red Blood Cell (RBC) Count 4.72 mill/uL (4.20-5.40); White Blood Cell (WBC) Count 6.4 thou/uL (4.8-10.8)
[2021-03-10 18:17] LABS: ALT (SGPT) 39 U/L (8-55); AST (SGOT) 49 U/L (5-34); Albumin 3.5 g/dL (3.5-5.0); Alkaline Phosphatase 77 U/L (40-110); Anion Gap 14 mmol/L (10-20); BUN (Urea Nitrogen) 9 mg/dL (7.0-18.7); Bilirubin, Total 0.3 mg/dL (0.2-1.2); Calc. Creatinine Clearance 0 mL/min (70-130); Calcium 8.7 mg/dL (7.8-10.44); Carbon Dioxide 20 mmol/L (22-29); Chloride 107 mmol/L (98-107); Globulin 2.6 g/dL (2.4-3.5); Glucose 99 mg/dL (70-105); Potassium 4.4 mmol/L (3.5-5.1); Protein, Total 6.1 g/dL (6.0-8.3); Sodium 137 mmol/L (136-145)
== END 2021-03-10 19:24 | disposition home or self-care (01) ==
LOC: ERS 16:27
DX: L76.22 Postprocedural hemorrhage of skin and subcutaneous tissue following other procedure (principal); R53.1 Weakness; M19.90 Unspecified osteoarthritis, unspecified site; J44.9 Chronic obstructive pulmonary disease, unspecified; F17.210 Nicotine dependence, cigarettes, uncomplicated
CPT/HCPCS: 36415; 80053; 85025; 93005

== ENCOUNTER 2021-05-16 13:21 | Emergency (ER) | payer SELFPAY | END 2021-05-16 14:52 | disposition home or self-care (01) | LOC: ERS 13:21 | DX: S93.401A Sprain of unspecified ligament of right ankle, initial encounter (principal); M19.90 Unspecified osteoarthritis, unspecified site; J44.9 Chronic obstructive pulmonary disease, unspecified; F17.210 Nicotine dependence, cigarettes, uncomplicated; X50.1XXA Overexertion from prolonged static or awkward postures, initial encounter ==

== ENCOUNTER 2021-07-05 11:51 | Emergency (ER) | payer SELFPAY ==
[2021-07-05] MEDS ORDERED: Acetaminophen 325 MG TAB ONE (13:48)
[2021-07-05 17:37] LABS: SARS-CoV-2 PCR by NAA Not Detected (NotDetected)
== END 2021-07-05 14:38 | disposition home or self-care (01) ==
LOC: ERS 11:51
DX: J02.9 Acute pharyngitis, unspecified (principal); Z20.822 Contact with and (suspected) exposure to COVID-19; J44.9 Chronic obstructive pulmonary disease, unspecified; F17.210 Nicotine dependence, cigarettes, uncomplicated
CPT/HCPCS: 87081; 87430; 99283; U0003; U0005

== ENCOUNTER 2022-01-11 01:57 | Emergency (ER) | payer SELFPAY ==
[2022-01-11] MEDS ORDERED: Ketorolac Tromethamine 30 MG/ML VIAL ONE (02:08)
[2022-01-11 02:47] LABS: #Eosinphils 0.1 thou/uL (0.0-0.7); #Lymphocytes 1.5 thou/uL (1.20-3.40); #Monocytes 0.4 thou/uL (0.11-0.59); #Neutrophils 4.4 thou/uL (1.40-6.50); %Basophils 0.6 % (0.0-1.0); %Eosinophils 0.8 % (0.0-10.0); %Lymphocytes 23.2 % (21.0-51.0); %Monocytes 6.7 % (0.0-10.0); %Neutrophils 68.7 % (42.0-75.0); Hemoglobin 14.7 g/dL (12.0-16.0); Mean Corpuscular HGB CONC 32.8 g/dL (32.0-36.0); Mean Corpuscular Hemoglobin 31.4 pg (27.0-31.0); Mean Corpuscular Volume 95.5 fL (78.0-98.0); Mean Platelet Volume 9.4 fL (7.4-10.4); Platelet Count 134 thou/uL (130-400); RBC Distribution Width 13.6 % (11.5-14.5); Red Blood Cell (RBC) Count 4.69 mill/uL (4.20-5.40); White Blood Cell (WBC) Count 6.4 thou/uL (4.8-10.8)
[2022-01-11 03:11] LABS: ALT (SGPT) 28 U/L (8-55); AST (SGOT) 32 U/L (5-34); Albumin 3.4 g/dL (3.5-5.0); Alkaline Phosphatase 68 U/L (40-110); Anion Gap 14 mmol/L (10-20); BUN (Urea Nitrogen) 7 mg/dL (7.0-18.7); Bilirubin, Total 0.3 mg/dL (0.2-1.2); Calc. Creatinine Clearance 0 mL/min (70-130); Calcium 8.6 mg/dL (7.8-10.44); Carbon Dioxide 19 mmol/L (22-29); Chloride 103 mmol/L (98-107); Globulin 2.3 g/dL (2.4-3.5); Glucose 100 mg/dL (70-105); Lipase 23 U/L (8-78); Potassium 3.7 mmol/L (3.5-5.1); Protein, Total 5.7 g/dL (6.0-8.3); Sodium 132 mmol/L (136-145)
== END 2022-01-11 04:24 | disposition home or self-care (01) ==
LOC: ERS 01:57
DX: R11.2 Nausea with vomiting, unspecified (principal); K08.89 Other specified disorders of teeth and supporting structures; J44.9 Chronic obstructive pulmonary disease, unspecified; M19.90 Unspecified osteoarthritis, unspecified site; F17.210 Nicotine dependence, cigarettes, uncomplicated; Z79.51 Long term (current) use of inhaled steroids
CPT/HCPCS: 36415; 71045; 80053; 83690; 84484; 85025; 93005; 94640; 96372; J1885; J7620

== ENCOUNTER 2022-01-15 15:07 | Emergency (ER) | payer SELFPAY ==
[2022-01-15] MEDS ORDERED: Ketorolac Tromethamine 30 MG/ML VIAL ONE (16:21)
== END 2022-01-15 16:45 | disposition home or self-care (01) ==
LOC: ERS 15:07
DX: K03.81 Cracked tooth (principal); M19.90 Unspecified osteoarthritis, unspecified site; J44.9 Chronic obstructive pulmonary disease, unspecified; F17.210 Nicotine dependence, cigarettes, uncomplicated
CPT/HCPCS: 96372; 99282; J1885

== ENCOUNTER 2022-04-03 12:56 | Emergency (ER) | payer SELFPAY ==
[2022-04-03] MEDS ORDERED: Lidocaine Viscous Sol 2% 15 ml UD Cup ONE ×2 (14:15→14:17)
== END 2022-04-03 15:19 | disposition left against medical advice (07) ==
LOC: ERS 12:56
DX: Z53.21 Procedure and treatment not carried out due to patient leaving prior to being seen by health care provider (principal)

== ENCOUNTER 2022-04-04 08:38 | Emergency (ER) | payer SELFPAY ==
[2022-04-04] MEDS ORDERED: Ketorolac Tromethamine 30 MG/ML VIAL ONE (09:43)
== END 2022-04-04 10:28 | disposition home or self-care (01) ==
LOC: ERS 08:38
DX: K04.7 Periapical abscess without sinus (principal); J44.9 Chronic obstructive pulmonary disease, unspecified; F17.210 Nicotine dependence, cigarettes, uncomplicated
CPT/HCPCS: 96372; 99283; J1885

== ENCOUNTER 2022-04-05 05:35 | Emergency (ER) | payer SELFPAY ==
[2022-04-05] MEDS ORDERED: Midazolam HCl 2 mg/2 ml Vial ONE (05:54)
[2022-04-05] MEDS ORDERED: Ketorolac Tromethamine 30 MG/ML VIAL ONE (05:54)
[2022-04-05] MEDS ORDERED: Lidocaine 1% MPF 2 ML VIAL ONE (05:59)
[2022-04-05] MEDS ORDERED: Ampicillin/Sulbactam 1.5 GM in Sodium Chloride 0.9% 100 ML IVPB SCH (06:30)
[2022-04-05 07:00] LABS: ALT (SGPT) 22 U/L (8-55); AST (SGOT) 24 U/L (5-34); Albumin 3.4 g/dL (3.5-5.0); Alkaline Phosphatase 79 U/L (40-110); Anion Gap 11 mmol/L (10-20); BUN (Urea Nitrogen) Less than 4 mg/dL (7.0-18.7); Bilirubin, Total 0.8 mg/dL (0.2-1.2); Calc. Creatinine Clearance 0 mL/min (70-130); Calcium 8.8 mg/dL (7.8-10.44); Carbon Dioxide 25 mmol/L (22-29); Chloride 107 mmol/L (98-107); Estimated GFR 89; Globulin 2.6 g/dL (2.4-3.5); Glucose 106 mg/dL (70-105); Potassium 3.8 mmol/L (3.5-5.1); Sodium 139 mmol/L (136-145)
[2022-04-05 07:17] LABS: #Lymphocytes 1.1 thou/uL (1.20-3.40); #Monocytes 0.5 thou/uL (0.11-0.59); #Neutrophils 3.8 thou/uL (1.40-6.50); %Basophils 0.1 % (0.0-1.0); %Eosinophils 0.4 % (0.0-10.0); %Lymphocytes 19.6 % (21.0-51.0); %Monocytes 8.7 % (0.0-10.0); %Neutrophils 71.1 % (42.0-75.0); Hemoglobin 14.7 g/dL (12.0-16.0); Mean Corpuscular HGB CONC 33.1 g/dL (32.0-36.0); Mean Corpuscular Hemoglobin 31.7 pg (27.0-31.0); Mean Corpuscular Volume 95.6 fL (78.0-98.0); Mean Platelet Volume 9.8 fL (7.4-10.4); Platelet Count 98 thou/uL (130-400); Platelet Morphology Comment Appears Decreased; RBC Distribution Width 13.9 % (11.5-14.5); RBC Morphology Normal; Red Blood Cell (RBC) Count 4.65 mill/uL (4.20-5.40); White Blood Cell (WBC) Count 5.4 thou/uL (4.8-10.8)
[2022-04-05] MEDS ORDERED: Iopamidol-370 76% 500 ML 1 ML ONE (13:59)
== END 2022-04-05 07:30 | disposition home or self-care (01) ==
LOC: ERS 05:35
DX: L02.01 Cutaneous abscess of face (principal); K04.7 Periapical abscess without sinus; L03.213 Periorbital cellulitis; J44.9 Chronic obstructive pulmonary disease, unspecified; J45.909 Unspecified asthma, uncomplicated; M19.90 Unspecified osteoarthritis, unspecified site; F17.210 Nicotine dependence, cigarettes, uncomplicated; Z79.899 Other long term (current) drug therapy
CPT/HCPCS: 10060; 70487; 80053; 85025; 96365; 96375; J0295; J1885; J2250; J3490; Q9967

== ENCOUNTER 2022-06-15 22:12 | Emergency (ER) | payer SELFPAY ==
[2022-06-15 23:22] LABS: Bacteria/HPF None Seen HPF (None Seen); Bilirubin Negative (Negative); Blood, Urine Negative (Negative); Clarity Clear (Clear); Glucose, Urine (Dipstick) Normal (Negative); Ketone, Urine Negative (Negative); Leukocyte Negative Leu/uL (Negative); Nitrite Negative (Negative); Protein, Urine (Dipstick) 30 mg/dL (Neg-Trace); RBC/HPF 0-3 HPF (0-3); Specific Gravity, Urine 1.027 (1.002-1.036); Squamous Epithelial 0-3 HPF (0-3); WBC/HPF 0-3 HPF (0-3); pH, Urine 5.5 (5.0-9.0)
[2022-06-15 23:22] LABS: #Eosinphils 0.1 thou/uL (0.0-0.7); #Lymphocytes 1.3 thou/uL (1.20-3.40); #Monocytes 0.4 thou/uL (0.11-0.59); #Neutrophils 3.2 thou/uL (1.40-6.50); %Basophils 0.6 % (0.0-1.0); %Lymphocytes 26.5 % (21.0-51.0); %Monocytes 7.9 % (0.0-10.0); Hemoglobin 13.8 g/dL (12.0-16.0); Mean Corpuscular HGB CONC 32.6 g/dL (32.0-36.0); Mean Corpuscular Hemoglobin 31.3 pg (27.0-31.0); Mean Corpuscular Volume 95.9 fL (78.0-98.0); Mean Platelet Volume 9.6 fL (7.4-10.4); Platelet Count 133 thou/uL (130-400); RBC Distribution Width 12.9 % (11.5-14.5); Red Blood Cell (RBC) Count 4.41 mill/uL (4.20-5.40)
[2022-06-15 23:36] LABS: ALT (SGPT) 27 U/L (8-55); AST (SGOT) 35 U/L (5-34); Albumin 3.9 g/dL (3.5-5.0); Alkaline Phosphatase 83 U/L (40-110); Anion Gap 13 mmol/L (10-20); BUN (Urea Nitrogen) 8 mg/dL (7.0-18.7); Bilirubin, Total 0.3 mg/dL (0.2-1.2); Calc. Creatinine Clearance 0 mL/min (70-130); Calcium 9.2 mg/dL (7.8-10.44); Carbon Dioxide 22 mmol/L (22-29); Chloride 108 mmol/L (98-107); Estimated GFR 68; Globulin 2.9 g/dL (2.4-3.5); Glucose 115 mg/dL (70-105); Potassium 3.9 mmol/L (3.5-5.1); Protein, Total 6.8 g/dL (6.0-8.3); Sodium 139 mmol/L (136-145)
[2022-06-16 00:09] LABS: Pregnancy Test - Urine (BHCG) Negative (Negative); Pregu Control Background? CLEAR/WHITE (CLR/WHITE); Pregu Control Bar Appear? YES (CONTROL BAR); Specific Gravity 1.027 (1.002-1.036)
[2022-06-16] MEDS ORDERED: Ibuprofen 800 MG TAB ONE (02:41)
== END 2022-06-16 02:45 | disposition home or self-care (01) ==
LOC: ERS 22:12
DX: R10.9 Unspecified abdominal pain (principal); R30.0 Dysuria; J44.9 Chronic obstructive pulmonary disease, unspecified; F17.210 Nicotine dependence, cigarettes, uncomplicated
CPT/HCPCS: 36415; 74176; 80053; 81003; 81015; 81025; 85025; 87086

== ENCOUNTER 2022-07-16 18:52 | Emergency (ER) | payer SELFPAY ==
[2022-07-16 20:07] LABS: ALT (SGPT) 30 U/L (8-55); AST (SGOT) 33 U/L (5-34); Albumin 3.6 g/dL (3.5-5.0); Alkaline Phosphatase 82 U/L (40-110); Anion Gap 11 mmol/L (10-20); BUN (Urea Nitrogen) 11 mg/dL (7.0-18.7); Bilirubin, Total 0.4 mg/dL (0.2-1.2); Calc. Creatinine Clearance 0 mL/min (70-130); Calcium 8.8 mg/dL (7.8-10.44); Carbon Dioxide 20 mmol/L (22-29); Chloride 108 mmol/L (98-107); Estimated GFR 69; Globulin 2.6 g/dL (2.4-3.5); Glucose 92 mg/dL (70-105); Potassium 4.1 mmol/L (3.5-5.1); Protein, Total 6.2 g/dL (6.0-8.3); Sodium 135 mmol/L (136-145)
[2022-07-16 20:12] LABS: Hemoglobin 14.4 g/dL (12.0-16.0); Mean Corpuscular HGB CONC 32.4 g/dL (32.0-36.0); Mean Corpuscular Hemoglobin 31.3 pg (27.0-31.0); Mean Corpuscular Volume 96.7 fl (78.0-98.0); RBC Distribution Width 12.6 % (11.5-14.5); Red Blood Cell (RBC) Count 4.61 mill/uL (4.20-5.40); White Blood Cell (WBC) Count 4.2 10x3/uL (4.8-10.8)
[2022-07-16] MEDS ORDERED: Mag-Al 1200 mg/1200 mg/30 ML UDCUP ONE (20:27)
[2022-07-16] MEDS ORDERED: Lidocaine Viscous Sol 2% 15 ml UD Cup ONE (20:27)
[2022-07-16] MEDS ORDERED: Ondansetron PF 4 MG/2 ML Vial ONE (20:28)
[2022-07-16 20:34] LABS: #Eosinphils 0.1 thou/uL (0.0-0.7); #Lymphocytes 0.8 thou/uL (1.20-3.40); #Monocytes 0.3 thou/uL (0.11-0.59); #Neutrophils 3.1 thou/uL (1.40-6.50); %Basophils 0.3 % (0.0-1.0); %Lymphocytes 19.1 % (21.0-51.0); %Monocytes 6.1 % (0.0-10.0); %Neutrophils 72.6 % (42.0-75.0); Large Platelets SLIGHT; MDiff Complete? YES; Mean Platelet Volume 9.9 fL (7.4-10.4); Platelet Count 102 10x3/uL (130-400); Platelet Morphology Comment Appears Decreased; RBC Morphology Normal
[2022-07-16 21:44] LABS: Bilirubin Negative (Negative); Blood, Urine Negative (Negative); Clarity Clear (Clear); Glucose, Urine (Dipstick) Normal (Negative); Ketone, Urine Negative (Negative); Leukocyte Negative Leu/uL (Negative); Nitrite Negative (Negative); Protein, Urine (Dipstick) Negative (Neg-Trace); Specific Gravity, Urine 1.006 (1.002-1.036); Urobilinogen Normal mg/dL (Less than 2); pH, Urine 5.5 (5.0-9.0)
== END 2022-07-16 22:58 | disposition home or self-care (01) ==
LOC: ERS 18:52
DX: K52.9 Noninfective gastroenteritis and colitis, unspecified (principal); R11.2 Nausea with vomiting, unspecified; J44.9 Chronic obstructive pulmonary disease, unspecified; F17.210 Nicotine dependence, cigarettes, uncomplicated
CPT/HCPCS: 36415; 71045; 74176; 80053; 81003; 83690; 84484; 85025; 93005; 96374; J2405

== ENCOUNTER 2022-10-22 17:23 | Emergency (ER) | payer SELFPAY | END 2022-10-22 19:53 | disposition home or self-care (01) | LOC: ERS 17:23 | DX: K08.89 Other specified disorders of teeth and supporting structures (principal); J44.9 Chronic obstructive pulmonary disease, unspecified; F17.210 Nicotine dependence, cigarettes, uncomplicated | CPT/HCPCS: 99282 ==

== ENCOUNTER 2022-12-26 07:59 | Emergency (ER) | payer SELFPAY ==
[2022-12-26 09:15] LABS: #Lymphocytes 1.2 thou/uL (1.20-3.40); #Monocytes 0.3 thou/uL (0.11-0.59); #Neutrophils 2.2 thou/uL (1.40-6.50); %Basophils 0.2 % (0.0-1.0); %Lymphocytes 32.3 % (21.0-51.0); %Monocytes 7.4 % (0.0-10.0); %Neutrophils 59.2 % (42.0-75.0); Hemoglobin 15.2 g/dL (12.0-16.0); Mean Corpuscular HGB CONC 33.5 g/dL (32.0-36.0); Mean Corpuscular Hemoglobin 31.3 pg (27.0-31.0); Mean Corpuscular Volume 93.5 fl (78.0-98.0); Mean Platelet Volume 10.1 fL (7.4-10.4); Platelet Count 119 10x3/uL (130-400); RBC Distribution Width 13.2 % (11.5-14.5); Red Blood Cell (RBC) Count 4.86 mill/uL (4.20-5.40); White Blood Cell (WBC) Count 3.7 10x3/uL (4.8-10.8)
[2022-12-26 09:29] LABS: ALT (SGPT) 29 U/L (8-55); AST (SGOT) 29 U/L (5-34); Albumin 4.2 g/dL (3.5-5.0); Alkaline Phosphatase 86 U/L (40-110); Anion Gap 12 mmol/L (10-20); BUN (Urea Nitrogen) 8 mg/dL (7.0-18.7); Bilirubin, Total 0.4 mg/dL (0.2-1.2); Calc. Creatinine Clearance 0 mL/min (70-130); Calcium 9.9 mg/dL (7.8-10.44); Carbon Dioxide 25 mmol/L (22-29); Chloride 106 mmol/L (98-107); Estimated GFR 69; Globulin 3.5 g/dL (2.4-3.5); Glucose 94 mg/dL (70-105); Lipase 25 U/L (8-78); Protein, Total 7.7 g/dL (6.0-8.3); Sodium 138 mmol/L (136-145)
[2022-12-26] MEDS ORDERED: Ondansetron PF 4 MG/2 ML Vial ONE (09:42)
[2022-12-26] MEDS ORDERED: Aspirin Chewable 81 MG TAB ONE (09:42)
[2022-12-26 13:18] LABS: Bilirubin Negative (Negative); Blood, Urine Negative (Negative); Clarity Clear (Clear); Glucose, Urine (Dipstick) Normal (Negative); Ketone, Urine Negative (Negative); Leukocyte Negative Leu/uL (Negative); Nitrite Negative (Negative); Protein, Urine (Dipstick) 20 mg/dL (Neg-Trace); Specific Gravity, Urine 1.013 (1.002-1.036); Urobilinogen Normal mg/dL (Less than 2); pH, Urine 5.5 (5.0-9.0)
== END 2022-12-26 13:00 | disposition home or self-care (01) ==
LOC: ERS 07:59
DX: R11.10 Vomiting, unspecified (principal); R07.9 Chest pain, unspecified; J44.9 Chronic obstructive pulmonary disease, unspecified; F17.210 Nicotine dependence, cigarettes, uncomplicated; Z79.899 Other long term (current) drug therapy
CPT/HCPCS: 36415; 71045; 80053; 81003; 83690; 84484; 85025; 93005; 96361; 96374; J2405

== ENCOUNTER 2023-10-05 01:43 | Emergency (ER) | payer SELFPAY ==
[2023-10-05 03:16] LABS: Troponin I Less than 0.010 ng/mL (< 0.028)
[2023-10-05 03:35] LABS: ALT (SGPT) 34 U/L (8-55); AST (SGOT) 36 U/L (5-34); Albumin 3.8 g/dL (3.5-5.0); Alcohol 177.5 mg/dL (Less than 10); Alkaline Phosphatase 73 U/L (40-110); Anion Gap 14 mmol/L (10-20); BUN (Urea Nitrogen) 9 mg/dL (7.0-18.7); Bilirubin, Total 0.3 mg/dL (0.2-1.2); Calc. Creatinine Clearance 0 mL/min (70-130); Calcium 8.7 mg/dL (7.8-10.44); Carbon Dioxide 22 mmol/L (22-29); Chloride 105 mmol/L (98-107); Estimated GFR 70; Globulin 2.7 g/dL (2.4-3.5); Glucose 106 mg/dL (70-105); Lipase 33 U/L (8-78); Potassium 3.7 mmol/L (3.5-5.1); Protein, Total 6.5 g/dL (6.0-8.3); Sodium 137 mmol/L (136-145)
[2023-10-05] MEDS ORDERED: Metoclopramide HCl 10 MG (2 mL) VIAL ONE (03:42)
[2023-10-05] MEDS ORDERED: Acetaminophen 500 MG TAB ONE (03:42)
[2023-10-05 03:43] LABS: #Monocytes 0.3 thou/uL (0.11-0.59); #Neutrophils 2.2 thou/uL (1.40-6.50); %Basophils 0.5 % (0.0-1.0); %Eosinophils 0.3 % (0.0-10.0); %Lymphocytes 32.4 % (21.0-51.0); %Monocytes 7.7 % (0.0-10.0); %Neutrophils 58.8 % (42.0-75.0); Hematocrit 46.7 % (36.0-47.0); Hemoglobin 15.7 g/dL (12.0-16.0); Mean Corpuscular HGB CONC 33.6 g/dL (32.0-36.0); Mean Corpuscular Volume 95.1 fl (78.0-98.0); Mean Platelet Volume 11.9 fL (7.4-10.4); Platelet Count 130 10x3/uL (130-400); RBC Distribution Width 15.1 % (11.5-14.5); Red Blood Cell (RBC) Count 4.91 mill/uL (4.20-5.40); White Blood Cell (WBC) Count 3.8 10x3/uL (4.8-10.8)
[2023-10-05 05:55] LABS: Lactic Acid 2.1 mmol/L (0.5-2.2)
[2023-10-05] MEDS ORDERED: Iopamidol-370 76% 500 ML MDV (1 ML CHARGE) ONE (15:00)
== END 2023-10-05 08:00 | disposition home or self-care (01) ==
LOC: ERS 01:43
DX: R11.2 Nausea with vomiting, unspecified (principal); R10.13 Epigastric pain; F10.129 Alcohol abuse with intoxication, unspecified; J44.9 Chronic obstructive pulmonary disease, unspecified
CPT/HCPCS: 36415; 71045; 74177; 80053; 80307; 83605; 83690; 84484; 85025; 96361; 96365; J2765; Q9967

== ENCOUNTER 2024-08-23 13:34 | Emergency (ER) | payer SELFPAY ==
[2024-08-23] MEDS ORDERED: Bupivacaine PF 0.5% 30 ML VIAL ONE (14:42)
[2024-08-23] MEDS ORDERED: Ketorolac Tromethamine 30 MG (1 mL) VIAL ONE (14:42)
== END 2024-08-23 15:49 | disposition home or self-care (01) ==
LOC: ERS 13:34
DX: K05.219 Aggressive periodontitis, localized, unspecified severity (principal); J45.909 Unspecified asthma, uncomplicated; J44.9 Chronic obstructive pulmonary disease, unspecified; F17.210 Nicotine dependence, cigarettes, uncomplicated; Z79.51 Long term (current) use of inhaled steroids
CPT/HCPCS: 41800; 96372; J0665; J1885

== ENCOUNTER 2024-09-02 06:19 | Emergency (ER) | payer SELFPAY ==
[2024-09-02] MEDS ORDERED: Acetaminophen 500 MG TAB ONE ×2 (07:29→07:31)
[2024-09-02] MEDS ORDERED: Ketorolac Tromethamine 30 MG (1 mL) VIAL ONE (07:30)
[2024-09-02] MEDS ORDERED: Metoclopramide HCl 10 MG (2 mL) VIAL ONE (07:30)
[2024-09-02] MEDS ORDERED: diphenhydrAMINE 50 MG/ML VIAL ONE (07:30)
== END 2024-09-02 08:32 | disposition home or self-care (01) ==
LOC: ERS 06:19
DX: J01.00 Acute maxillary sinusitis, unspecified (principal); K02.9 Dental caries, unspecified; K04.7 Periapical abscess without sinus; F17.210 Nicotine dependence, cigarettes, uncomplicated
CPT/HCPCS: 70487; 71046; 87428; 96374; 96375; J1200; J1885; J2765

== ENCOUNTER 2025-04-19 03:21 | Emergency (ER) | payer SELFPAY ==
[2025-04-19 03:47] LABS: #Basophils 0.04 10x3/uL (0.0-0.2); #Eosinophils 0.03 10x3/uL (0.0-0.7); #Monocytes 0.52 10x3/uL (0.11-0.59); #Neutrophils 5.47 10x3/uL (1.40-6.50); %Basophils 0.5 % (0.0-1.0); %Eosinophils 0.4 % (0.0-10.0); %Lymphocytes 24.7 % (21.0-51.0); %Monocytes 6.4 % (0.0-10.0); %Neutrophils 67.6 % (42.0-75.0); Hematocrit 51.4 % (36.0-47.0); Hemoglobin 16.7 g/dL (12.0-16.0); Mean Corpuscular Hemoglobin 30.9 pg (27.0-31.0); Mean Corpuscular Volume 95.2 fL (78.0-98.0); Platelet Count 178 10x3/uL (130-400); Red Blood Cell (RBC) Count 5.40 mill/uL (4.20-5.40); White Blood Cell (WBC) Count 8.09 10x3/uL (4.8-10.8)
[2025-04-19] MEDS ORDERED: Pantoprazole 40 MG VIAL ONE (03:47)
[2025-04-19] MEDS ORDERED: Ondansetron PF 4 MG/2 ML Vial ONE (03:47)
[2025-04-19 04:03] LABS: ALT (SGPT) 69 U/L (Less than 34); AST (SGOT) 80 U/L (11-34); Albumin 4.8 g/dL (3.1-4.5); Alkaline Phosphatase 94 U/L (40-110); Anion Gap 23 mmol/L (10-20); BUN (Urea Nitrogen) 19 mg/dL (9.8-20.1); Bilirubin, Total 0.6 mg/dL (0.3-1.2); Calc. Creatinine Clearance 0 mL/min (70-130); Calcium 9.9 mg/dL (7.8-10.44); Carbon Dioxide 17 mmol/L (22-29); Chloride 99 mmol/L (98-107); Globulin 4.0 g/dL (2.4-3.5); Glucose 111 mg/dL (70-105); Lipase 36 U/L (8-78); Magnesium 2.1 mg/dL (1.6-2.6); Potassium 4.6 mmol/L (3.5-5.1); Sodium 134 mmol/L (136-145)
[2025-04-19 07:31] LABS: Bacteria/HPF None Seen HPF (None Seen); CAUTI Indications for Culture Pelvic or flank pain; Glucose, Urine (Dipstick) Normal (Negative); Leukocyte Negative Leu/uL (Negative); Protein, Urine (Dipstick) Negative (Neg-Trace); RBC/HPF 0-3 HPF (0-3); Specific Gravity, Urine 1.022 (1.002-1.036); WBC/HPF 0-3 HPF (0-3)
[2025-04-19 07:34] LABS: Urine Culture Reflex No No
[2025-04-19] MEDS ORDERED: Iopamidol 370 76% 100 ML VIAL ONE (11:44)
== END 2025-04-19 07:55 | disposition home or self-care (01) ==
LOC: ERS 03:21
DX: S33.5XXA Sprain of ligaments of lumbar spine, initial encounter (principal); K76.0 Fatty (change of) liver, not elsewhere classified; B34.9 Viral infection, unspecified; J44.9 Chronic obstructive pulmonary disease, unspecified; F17.210 Nicotine dependence, cigarettes, uncomplicated; X50.0XXA Overexertion from strenuous movement or load, initial encounter
CPT/HCPCS: 36415; 71045; 71275; 74174; 80053; 81001; 83605; 83690; 83735; 84484; 85025; 86850; 86900; 86901; 93005; J2270; J2405; J2470